=== PATIENT | male | born 1935 | race Caucasian/White ===

== ENCOUNTER → 2019-02-07 10:20 | Outpatient (CLI) | payer MEDICARE, OTHER ==
[2015-09-24 16:00] VITALS: BMI 29.0
[~2019-02-07 10:20] MED LIST: BAYER CHEWABLE81 MG PO; COZAAR50 MG; FISH OIL 1,0001 CA1 PO; FOLIC ACID1 MG PO; MULTIPLE VITAMI1 TA1 PO; PROSCAR5 MG PO; VITAMIN B-122500 MCG PO; ZOCOR20 MG PO
== END | disposition home or self-care (01) ==
LOC: D.HCCARDIO 10:20
PROVIDERS: ATTEND Internal Medicine Cardiovascular Disease
DX: I35.0 Nonrheumatic aortic (valve) stenosis (principal)